=== PATIENT | male | born 1955 | race American Indian/Alaskan Native ===

== ENCOUNTER 2017-12-12 07:54 | Day surgery (SDC) | payer MEDICARE ==
[~2017-12-12 07:54] MED LIST: ANCEF/STERILE WATER 2 GM/20 ML 2 GM/20 ML SYRINGE IV NR; HEPARIN 10,000 UNITS/10 ML IV ONE; HEPARIN 10,000 UNITS/10 ML ONE; MARCAINE 0.5% 30 ML INFILTRATI ONE; MARCAINE 0.5% INFILTRATI ONE; NACL 0.9% 1000 ML 1,000 ML IV SCH; NACL 0.9% 500 ML 500 ML ONE; NACL 0.9% 500 ML IRRIGATION ONE; NACL ONE; RIFADIN ONE; SODIUM BICARBONATE ONE; VERSED IV NR; XYLOCAINE 1% 20 mL ONE
[2017-12-12] MEDS ORDERED: NACL BACTERIOSTATIC INFILTRATI ONE (09:44)
[2017-12-12 10:16] LABS: Basophils % (Auto) 0.8 % (0.0-1.8); Eosinophils % (Auto) 0.6 % (0.0-4.3); Hematocrit 42.6 % (35.5-45.6); Hemoglobin 14.1 gm/dl (11.8-15.2); Lymphocytes # (Auto) 1.6 K/mm3 (1.2-5.4); Lymphocytes % (Auto) 30.3 % (13.4-35.0); Mean Corpuscular HGB Conc 33 % (32-34); Mean Corpuscular Hemoglobin 29 pg (28-32); Mean Corpuscular Volume 87 fl (84-94); Monocytes # (Auto) 0.7 K/mm3 (0.0-0.8); Monocytes % (Auto) 12.5 % (0.0-7.3); Platelet Count 248 K/mm3 (140-440); Red Blood Count 4.92 M/mm3 (3.65-5.03); Red Cell Distribution Width 13.6 % (13.2-15.2)
[2017-12-12 10:43] LABS: BUN/Creatinine Ratio 22; Blood Urea Nitrogen 22 mg/dL (9-20); Calcium 9.5 mg/dL (8.4-10.2); Hemolysis Index 26
[2017-12-12] MEDS ORDERED: SUBLIMAZE ONE (10:50)
[2017-12-12] MEDS ORDERED: DIPRIVAN 10 MG/ML IV ONE (10:50)
[2017-12-12] MEDS ORDERED: DILAUDID IV PRN ×2 (11:03→11:23)
[2017-12-12] MEDS ORDERED: ZOFRAN IV PRN ×2 (11:03→11:23)
--- NOTE | 2017-12-12 11:22 | Anesthesia Day of Surgery ---
Anesthesia Day of Surgery - Day of Surgery Patient Examined: Yes Patient H&P Reviewed: Yes Patient is NPO: Yes
--- NOTE | 2017-12-12 11:23 | Anesthesia Consultation ---
Anesthesia Consult and Med Hx Date of service: 12/12/17 - Airway Anesthetic Teeth Evaluation: Good ROM Head & Neck: Adequate Mental/Hyoid Distance: Adequate Mallampati Class: Class III Intubation Access Assessment: Possibly Difficult - Pulmonary Exam CTA: Yes - Cardiac Exam Cardiac Exam: RRR - Pre-Operative Health Status ASA Pre-Surgery Classification: ASA3 Proposed Anesthetic Plan: General (GA with LMA denies GERD) - Pulmonary Hx Smoking: Yes (past hx) - Cardiovascular System Hx Hypertension: Yes (since 2000) Hx Heart Murmur: Yes - Central Nervous System Hx Psychiatric Problems: No - Endocrine Hx Renal Disease: Yes Hx End Stage Renal Disease: (acute renal failure) - Other Systems Hx Cancer: No
[2017-12-12] MEDS ORDERED: XYLOCAINE MPF 2% ONE (13:00)
[2017-12-12] MEDS ORDERED: ZOFRAN ONE (13:00)
--- NOTE | 2017-12-12 13:17 | Short Stay Summary ---
Short Stay Documentation Date of service: 12/12/17 Narrative H&P: See H&P - History H&P: obtained from office - Allergies and Medications Current Medications: Allergies No Known Allergies Allergy (Verified 12/07/17 16:16) Home Medications Medication Instructions Recorded Confirmed Last Taken Type Amlodipine Besylate 10 mg PO DAILY 06/21/16 12/12/17 12/12/17 07:15 History Metoprolol Tartrate 50 mg PO DAILY 06/21/16 12/12/17 12/11/17 09:00 History cloNIDine [Catapres] 0.2 mg PO DAILY 06/21/16 12/12/17 12/12/17 07:15 History glipiZIDE XL [Glucotrol Xl] 5 mg PO DAILY 06/21/16 12/12/17 12/11/17 History Isoniazid 1 tab PO DAILY 12/07/17 12/12/17 12/11/17 21:00 History Pyridoxine [Vitamin B-6] 1 tab PO DAILY 12/07/17 12/12/17 12/12/17 07:15 History Insulin Detemir [Levemir Flextouch] 10 unit SQ QDAY 12/12/17 12/12/17 12/11/17 21:00 History 10 UNITS Metformin HCl 500 mg PO QDAY 12/12/17 12/12/17 12/11/17 21:00 History Mycophenolate [Cellcept] 500 mg PO BID 12/12/17 12/12/17 12/11/17 21:00 History NIFEdipine [Nifedipine ER] 90 mg PO QDAY 12/12/17 12/12/17 12/12/17 07:15 History predniSONE [Deltasone] 5 mg PO QDAY 12/12/17 12/12/17 12/11/17 09:00 History Active Medications Hydromorphone HCl (Dilaudid) 0.5 mg IV Q10MIN PRN PRN Reason: Pain , Severe (7-10) Stop: 12/12/17 23:59 Hydromorphone HCl (Dilaudid) 0.5 mg IV Q10MIN PRN PRN Reason: Pain , Severe (7-10) Stop: 12/12/17 23:59 Cefazolin Sodium (Ancef/Sterile Water 2 Gm/20 Ml) 2 gm in 20 mls @ 80 mls/hr IV PREOP NR; Protocol Stop: 12/12/17 23:59 Sodium Chloride (Nacl 0.9% 1000 Ml) 1,000 mls @ 42 mls/hr IV DIRECT SARAI Last Admin: 12/12/17 10:08 Dose: 42 mls/hr Sodium Chloride (Nacl 0.9% 1000 Ml) 1,000 mls @ 75 mls/hr IV DIRECT SARAI Midazolam HCl (Versed) 2 mg IV PREOP NR Stop: 12/12/17 23:59 Last Admin: 12/12/17 11:41 Dose: 2 mg Ondansetron HCl (Zofran) 4 mg IV ONCE PRN PRN Reason: Nausea And Vomiting Ondansetron HCl (Zofran) 4 mg IV ONCE PRN PRN Reason: Nausea And Vomiting Stop: 12/12/17 23:59 - Brief post op/procedure progress note Date of procedure: 12/12/17 Pre-op diagnosis: Complications of Dialysis Access Post-op diagnosis: same Procedure: Ligation of Left Arm Arteriovenous Fistula Anesthesia: GETA Surgeon: RAN BREWER Estimated blood loss: minimal Condition: stable - Disposition Condition at discharge: Good Disposition: DC-01 TO HOME OR SELFCARE Short Stay Discharge Plan Activity: other (no heavy lifting with left arm) Wound: remove dressing (okay to remove Jered bandage in 24 hours), other (after removing Jered bandage okay to wash the wound with soap and water but do not soak in water) Follow up with: RAN BREWER MD [Staff Physician] - 14 Days Prescriptions: HYDROcodone/APAP 7.5-325 [[place] 7.5/325] 1 each PO Q6HR PRN #40 tablet PRN Reason: Pain
--- NOTE | 2017-12-12 13:30 | Operative Report ---
Operative Report Operative Report: Date of Procedure: 12/12/2017 Pre-operative Diagnosis: Complications of Dialysis Access Post-operative Diagnosis: Same Procedure(s): 1. Ligation of Left Arm Arteriovenous Fistula Surgeon: Brendan Ivory M.D. Focus Puller: Arik Anesthesia: Gen. Endotracheal Anesthesia EBL: Minimal Counts: Correct Complications: None Condition: Stable Findings: Fistula ligated without complications Specimen: None Indication: The patient is a 62-year-old male with a history of end-stage renal disease who recently underwent a renal transplant. He has a left arm brachiocephalic arteriovenous fistula that is enlarging secondary to a central stenosis and instead of having frequent interventions he prefers to have ligation of the fistula. He was given the risks, benefits, and alternative procedures and has consented to the procedure. Description of Procedure: The patient was brought to the operating room and laid in supine position. After general endotracheal anesthesia was achieved his left arm was prepped and draped in normal sterile fashion. A transverse incision was created just below the antecubital crease, through his previous incision, and sharp dissection was used to carry the incision down to the arterial anastomosis. Fistula dissected circumferentially and the fistula was clamped just above the arterial anastomosis and divided. The venous and was ligated with a 2-0 silk tie and the arterial portion was oversewn in running fashion with a 4-0 Prolene. I then made an incision with a 10 blade over the midportion of the fistula and used sharp dissection to carry the dissection down to the fistula. I dissected the fistula circumferentially and then expressed the blood out of the venous outflow. I then placed a 2-0 silk tie around the fistula and ligated the midportion of the fistula. I then made an additional incision in transverse fashion around the upper portion of the fistula at the shoulder and used sharp dissection to create a dissection down to the fistula. I dissected the fistula circumferentially and expressed the venous blood out and place a 2-0 silk around the fistula and ligated this portion as well. Hemostasis within the wounds was then achieved with direct pressure. Once hemostasis was achieved the wounds were anesthetized with 0.5% Marcaine. All wounds were then closed in 2 layers using 3-0 Vicryl running fashion and the deep dermal layer and a 4- 0 Monocryl in a running fashion and the subcuticular layer and dressed with Dermabond. I then placed a Telfa over the wounds and wrapped the upper arm with a 4 inch Jerde bandage to apply pressure on the fistula to keep it compressed and hopefully keep it from refilling with venous blood. All sponge, needle, instrument counts were correct. The patient tolerated the procedure well. He was taken to the recovery area in stable condition.
[2017-12-12] MEDS ORDERED: NORCO 7.5/325 PO PRN (13:44)
[2017-12-12 15:47] VITALS: BP 145/79
--- NOTE | 2017-12-12 17:04 | Post Anesthesia Evaluation ---
- Post Anesthesia Evaluation Patient Participated: Yes Airway Patent: Yes Stable Respiratory Function: Yes Nausea/Vomiting: No Temp > 96.8F: Yes Pain Manageable: Yes Adequeate Hydration: Yes Anesthesia Complications: No
== END 2017-12-12 15:13 | disposition home or self-care (01) ==
LOC: OR 07:54
PROVIDERS: ATTEND Surgery Vascular Surgery
DX: T82.858A Stenosis of other vascular prosthetic devices, implants and grafts, initial encounter (principal); I12.0 Hypertensive chronic kidney disease with stage 5 chronic kidney disease or end stage renal disease; E11.22 Type 2 diabetes mellitus with diabetic chronic kidney disease; N18.6 End stage renal disease; B19.20 Unspecified viral hepatitis C without hepatic coma; Z79.899 Other long term (current) drug therapy; Z87.891 Personal history of nicotine dependence; Y83.2 Surgical operation with anastomosis, bypass or graft as the cause of abnormal reaction of the patient, or of later complication, without mention of misadventure at the time of the procedure; Z98.890 Other specified postprocedural states
CPT/HCPCS: 36415; 36838; 80048; 82962; 85025; J0690; J1644; J2250; J2405; J2704; J3010; J7030; J7040; J3490